=== PATIENT | female | born 1980 | race Caucasian/White ===

== ENCOUNTER 2019-10-14 20:34 | Emergency (ER) | payer OTHER ==
[~2019-10-14] VITALS: Ht 167.6 cm; Wt 106.6 kg
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
[2019-10-14] MEDS ORDERED: ONDANSETRON HCL/PF 4 MG/2 ML VIAL ONE (21:22)
[2019-10-14] MEDS ORDERED: MORPHINE SULFATE INJ 2 MG/ML DISP.SYRIN ONE (21:22)
[2019-10-14 21:28] LABS: ABG BASE EXCESS 0.8 mmol/L; ABG OXYGEN SATURATION 94.6 % (92.0-98.5); ABG PCO2 38.4 mmHg (35.0-45.0); ABG PO2 72.5 mmHg (75.0-100.0); AaDO2 31.2 mmHg; COHb 0.8 % (0.5-1.5); MetHb 0.4 % (0.0-1.5); O2Hb 93.5 % (94.0-97.0); SITE, ABG Right Radial; VENT MODE, BG ROOM AIR
[2019-10-14] MEDS: ONDANSETRON HCL/PF - ER 4 MG/2 ML VIAL IV ONE (21:37)
[2019-10-14] MEDS: MORPHINE SULFATE INJ 2 MG/ML DISP.SYRIN IV ONE ×2 (21:37→22:16)
[2019-10-14] MEDS: IV NS 0.9% 1,000 ML BAG IV ONE (21:37)
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
[2019-10-14 21:49] VITALS: BP 105/67
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
[2019-10-14] MEDS ORDERED: MORPHINE SULFATE INJ 4 MG/ML DISP.SYRIN ONE (22:15)
--- NOTE | 2019-10-14 22:15 | NUR ---
ticket # [id number]. updated eta 5 min
--- NOTE | 2019-10-14 22:16 | NUR ---
VERBAL ORDER: MORPHINE 4MG IVP GIVEN ON L WRIST 22G
--- NOTE | 2019-10-14 22:44 | NUR ---
PT TRANSPORTED TO [facility], -SOB, NAD NOTED, PT COMFORTABLE, LEFT IN STABLE CONDTION
== END 2019-10-14 23:44 | disposition short-term general hospital (02) ==
LOC: ER 20:35
DX: T20.10XA Burn of first degree of head, face, and neck, unspecified site, initial encounter (principal); T20.17XA Burn of first degree of neck, initial encounter; T22.131A Burn of first degree of right upper arm, initial encounter; T22.112A Burn of first degree of left forearm, initial encounter; T31.11 Burns involving 10-19% of body surface with 10-19% third degree burns; Z90.49 Acquired absence of other specified parts of digestive tract; Z90.710 Acquired absence of both cervix and uterus; Z60.2 Problems related to living alone; X08.8XXA Exposure to other specified smoke, fire and flames, initial encounter; Y93.89 Activity, other specified; Y92.89 Other specified places as the place of occurrence of the external cause; Y99.8 Other external cause status
CPT/HCPCS: 36600; 96374; 96375; 96376; 99285; A6403 ×2; J2270 ×2; J2405